=== PATIENT | female | born 1970 ===

== ENCOUNTER 2017-10-06 15:22 | Emergency (ER) | payer BC, OTHER ==
--- NOTE | 2017-10-06 16:43 | ED PDOC ---
HPI: Headache Time Seen by Provider: 10/06/17 15:44 Chief Complaint (Nursing): Headache Chief Complaint (Provider): Migraine History Per: Patient History/Exam Limitations: no limitations Onset/Duration Of Symptoms: Days (x4) Current Symptoms Are (Timing): Still Present Severity: None Quality: "Pain" Preceeding Symptoms: Known Migraine Symptoms Associated Symptoms: Photophobia. denies: Blurred Vision, Nausea, Vomiting Additional Complaint(s): 47 year old female with a past medical history of migraines presents to the emergency department complaining of headache x4 days. Patient reports that she has been taking tylenol with no relief. She further states that she was diagnosed with migraines in 2011 by a neurologist and was prescribed an unknown medication which she stopped taking because it made her sick. She reports that the pain feel like hr typical migraine and it is associated with photophobia. Denies nausea, vomiting, blurry vision, vision changes. Patient states this headache is not the worse headache of her life. Past Medical History Reviewed: Historical Data, Nursing Documentation, Vital Signs Vital Signs: Last Vital Signs Temp 98.8 F 10/06/17 15:34 Pulse 67 10/06/17 15:34 Resp 16 10/06/17 15:34 BP 132/89 10/06/17 15:34 Pulse Ox 98 10/06/17 15:34 - Medical History PMH: Migraine Denies: Chronic Kidney Disease - Surgical History Surgical History: No Surg Hx - Family History Family History: States: Unknown Family Hx - Social History Current smoker - smoking cessation education provided: No Alcohol: Social Drugs: Denies - Home Medications Home Medications: Ambulatory Orders Medication Instructions Recorded Acetaminophen with Codeine 1 tab PO Q6H PRN #10 tab 10/06/17 [Tylenol with Codeine No. 3 300 mg-30 mg] Ondansetron ODT [Zofran ODT] 4 mg PO Q8H PRN #20 odt 10/06/17 - Allergies Allergies/Adverse Reactions: Allergies Allergy/AdvReac Type Severity Reaction Status Date / Time aspirin Allergy NAUSEA Verified 10/06/17 16:39 sodium Allergy RASH Verified 10/06/17 16:38 Review of Systems Eyes: Negative for: Vision Change ENT: Positive for: Other (Photophobia) Gastrointestinal: Negative for: Nausea, Vomiting Neurological: Positive for: Headache Physical Exam - Reviewed Nursing Documentation Reviewed: Yes Vital Signs Reviewed: Yes - Physical Exam Appears: Positive for: Non-toxic, No Acute Distress Head Exam: Positive for: ATRAUMATIC, NORMAL INSPECTION, NORMOCEPHALIC Skin: Positive for: Normal Color, Warm, Dry. Negative for: Rash Eye Exam: Positive for: Normal appearance. Negative for: EOMI, PERRL, Nystagmus ENT: Positive for: Normal ENT Inspection. Negative for: Nasal Congestion, Pharyngeal Erythema Neck: Positive for: Normal, Painless ROM, Supple Cardiovascular/Chest: Positive for: Regular Rate, Rhythm, Chest Non Tender. Negative for: Gallop, Murmur, Tachycardia Respiratory: Positive for: Normal Breath Sounds. Negative for: Rales, Rhonchi, Wheezing, Respiratory Distress Gastrointestinal/Abdominal: Positive for: Normal Exam, Bowel Sounds, Soft. Negative for: Tenderness, Mass, Guarding, Rebound Back: Positive for: Normal Inspection. Negative for: L CVA Tenderness, R CVA Tenderness, Vertebral Tenderness Extremity: Positive for: Normal ROM. Negative for: Tenderness, Deformity, Swelling Neurologic/Psych: Positive for: Alert, Oriented, Gait. Negative for: Motor/ Sensory Deficits - ECG O2 Sat by Pulse Oximetry: 98 (RA) Pulse Ox Interpretation: Normal Medical Decision Making Medical Decision Makin Initial Impression 47 year old female presenting with recurrent migraine headache Initial Plan: * Reevaluation 18:54 --Patient feeling better Documented by Brittany Lafleur acting as a scribe for Magalys Lau MD. All medical record entries made by the Scribe were at my direction and personally dictated by me. I have reviewed the chart and agree that the record accurately reflects my personal performance of the history, physical exam, medical decision making, and the department course for this patient. I have also personally directed, reviewed, and agree with the discharge instructions and disposition. Disposition - Clinical Impression Clinical Impression: Migraine - Disposition Referrals: [facility] [Outside] Torsten Feldman MD [Family Provider] - Condition: IMPROVED Additional Instructions: FOLLOW-UP WITH YOUR NEUROLOGIST WITHIN 2 DAYS FOR REEVALUATION. Prescriptions: Acetaminophen with Codeine [Tylenol with Codeine No. 3 300 mg-30 mg] 1 tab PO Q6H PRN #10 tab PRN Reason: Pain, Severe (8-10) Ondansetron ODT [Zofran ODT] 4 mg PO Q8H PRN #20 odt PRN Reason: Nausea/Vomiting Instructions: Migraine Headaches in Adults Forms: [facility] (Lithuanian)
[2017-10-06] MEDS ORDERED: DiphenhydrAMINE 50 mg/ml Inj IVP STA (17:14)
[2017-10-06] MEDS ORDERED: Promethazine 25 MG in Sodium Chloride 0.9% 50 ML IVPB STA (17:14)
[2017-10-06] MEDS ORDERED: Sodium Chloride 0.9% 1,000 ML IV STA (17:15)
[2017-10-06] MEDS ORDERED: DiphenhydrAMINE 50 mg/ml Inj ONE (17:21)
[2017-10-06 20:06] VITALS: BP 148/87; PULSE 74; RESP 18; TEMP 98.5; O2SAT 97
== END 2017-10-06 20:05 | disposition home or self-care (01) ==
LOC: H.ER 15:22
DX: G43.909 Migraine, unspecified, not intractable, without status migrainosus (principal)
CPT/HCPCS: 96374; 99284; J1200; J2550; J7030